=== PATIENT | female | born 1955 | race Native Hawaiian/Other Pacific Islander ===

== ENCOUNTER 2017-01-24 10:35 | Outpatient (CLI) | payer BC | END 2017-01-24 18:58 | disposition home or self-care (01) | LOC: RAD 10:35 | DX: M79.642 Pain in left hand (principal); M25.532 Pain in left wrist ==

== ENCOUNTER 2018-01-11 12:56 | Outpatient (CLI) | payer BC | END 2018-01-11 19:31 | disposition home or self-care (01) | LOC: RAD 12:56 | DX: Z13.820 Encounter for screening for osteoporosis (principal); Z78.0 Asymptomatic menopausal state ==